=== PATIENT | male | born 1975 | race Caucasian/White ===

== ENCOUNTER 2017-01-11 05:44 | Emergency (ER) | payer OTHER ==
[~2017-01-11] VITALS: Ht 175.3 cm; Wt 108.9 kg
[2017-01-11 07:36] VITALS: BP 126/71
== END 2017-01-11 07:36 | disposition home or self-care (01) ==
LOC: ED 05:44
DX: M54.9 Dorsalgia, unspecified (principal)
CPT/HCPCS: J1170; Q0162

== ENCOUNTER 2019-09-26 21:22 | Emergency (ER) | payer MEDICAID ==
[~2019-09-26] VITALS: Ht 175.3 cm; Wt 104.8 kg
[2019-09-26 21:33] VITALS: Ht 175.3 cm; Wt 104.8 kg
[2019-09-26 23:03] VITALS: BP 102/58
== END 2019-09-27 00:16 | disposition home or self-care (01) ==
LOC: ED 21:22
DX: N45.1 Epididymitis (principal)
CPT/HCPCS: 87491; 87591; J0696; J1885; Q0092

== ENCOUNTER 2019-11-04 22:58 | Emergency (ER) | payer MEDICAID ==
[~2019-11-04] VITALS: Ht 175.3 cm; Wt 99.8 kg
[2019-11-04 23:07] VITALS: Ht 175.3 cm; Wt 99.8 kg
[2019-11-05 01:26] VITALS: BP 114/68
== END 2019-11-05 01:26 | disposition home or self-care (01) ==
LOC: ED 22:58
DX: M62.838 Other muscle spasm (principal); M54.9 Dorsalgia, unspecified